=== PATIENT | female | born 1990 | race Caucasian/White ===

== ENCOUNTER 2017-05-02 16:11 | Observation (INO) | payer BC ==
[~2017-05-02] VITALS: Ht 167.6 cm; Wt 83.7 kg
[2017-05-03 16:55] LABS: BILIRUBIN URINE NEGATIVE (NEGATIVE); BLOOD URINE NEGATIVE /UL (NEGATIVE); COLOR URINE YELLOW (YELLOW); GLUCOSE URINE NEGATIVE (NEGATIVE); KETONE URINE NEGATIVE (NEGATIVE); LEUKOCYTES URINE NEGATIVE /UL (NEGATIVE); NITRITE URINE NEGATIVE (NEGATIVE); PH URINE 6.5 (4.0-8.0); PROTEIN URINE NEGATIVE (NEGATIVE); TURBIDITY URINE CLEAR (CLEAR); UROBILINOGEN URINE NORMAL (NORMAL)
[2017-05-03] MEDS ORDERED: PRENATAL 1+1)(P1 TAB PO (17:01)
[2017-05-03] MEDS ORDERED: LEVOTHROID (SY25 MCG PO (17:01)
[2017-05-03 17:02] LABS: BASOPHIL % 0.4 %; EOSINOPHIL # 0.1 K/uL (0.0-0.5); EOSINOPHIL % 1.2 %; HEMATOCRIT 36.2 % (33.0-46.0); HEMOGLOBIN 12.3 g/dL (11.0-15.0); IMMATURE GRANULOCYTE # 0.1 K/uL (0.0-0.3); IMMATURE GRANULOCYTE % 0.7 %; LYMPHOCYTE # 1.8 K/uL (0.8-4.0); LYMPHOCYTE % 21.6 %; MCH 31.3 pg (27.0-34.0); MCV 92.1 fl (83.0-98.0); MONOCYTE # 0.5 K/uL (0.0-1.0); MONOCYTE % 6.1 %; MPV 10.2 fl (9.4-12.4); NEUTROPHIL # (ANC) 5.7 K/uL (1.8-7.8); NRBC % 0 /100WBC (0-0.00); PLATELET COUNT 214 K/uL (150-450); RBC 3.93 M/uL (3.50-5.00); RDW-CV 13.5 % (11.9-14.6); WBC 8.2 K/uL (4.0-11.0)
== END 2017-05-03 18:53 | disposition disaster alternative care site (69) ==
LOC: EDSTATUS 16:11 → GOBM 16:53 → GOBS 05-03 16:33
PROVIDERS: ADMIT Obstetrics & Gynecology
DX: O99.89 Other specified diseases and conditions complicating pregnancy, childbirth and the puerperium (principal); R51 Headache; Z3A.40 40 weeks gestation of pregnancy
CPT/HCPCS: G0463

== ENCOUNTER 2017-05-05 05:25 | Inpatient (IN) | payer BC ==
[~2017-05-05] VITALS: Ht 167.6 cm; Wt 84.0 kg
--- NOTE | ~2017-05-05 | OR ---
PATIENT'S NAME: GABE ARAUZ [facility] AGE: 26 Y [address] ROOM: [place] [address] LOCATION: GOBS ADMIT DATE: 05/05/2017 OR/Procedure Report DISCHARGE DATE: FAMILY PHYSICIAN: Ankush Rodriguez MD ATTENDING PHYSICIAN: Cadence Stacy SURGEON: Kay Henderson MD DRAFTER MARINE: None. DATE OF PROCEDURE: 05/05/2017 PROCEDURES PERFORMED: Low vacuum-assisted vaginal delivery and manual extraction of the placenta. PRE-DELIVERY DIAGNOSES: 1. Intrauterine at 40 weeks 3 days. 2. Active labor. 3. Arrest of descent. POST-DELIVERY DIAGNOSES: 1. Intrauterine at 40 weeks 3 days. 2. Active labor. 3. Arrest of descent. 4. Post- hemorrhage. 5. Retained placenta. ANTIBIOTICS: None indicated. ANESTHESIA: With epidural. FINDINGS: A viable male weighing 8 pounds, 13 ounces. Apgars were 8 and 9. Umbilical cord was from placenta, which was manually extracted in pieces. Normal-appearing cervix and vagina. Second-degree perineal laceration. SPECIMENS: Cord blood. ESTIMATED BLOOD LOSS: 800 mL. COMPLICATIONS: The patient had increased bleeding due to retained placenta, and received IV Pitocin per protocol as well as one dose of IM Methergine, with subsequent improvement in her bleeding. INDICATIONS FOR PROCEDURE: The patient is a 26-year-old G3, P0-0-2-0, who presented at 40 weeks 3 days with complaints of contractions. The patient was 3 cm to 4 cm dilated on presentation, and then changed to 6. She received an epidural, and progressed normally through labor. When the patient was PATIENT'S NAME: GABE ARAUZ [facility] AGE: 26 Y [address] ROOM: [place] [address] LOCATION: BS ADMIT DATE: 05/05/2017 OR/Procedure Report DISCHARGE DATE: FAMILY PHYSICIAN: Ankush Rodriguez MD ATTENDING PHYSICIAN: Cadence Stacy complete, she began expulsive efforts and pushed for approximately 2-1/2 hours with a slight amount of descent to +2 station from a previous of +1. A discussion was held with the patient and her significant other that due to the minimal descent over the last hour of pushing, I would recommend proceeding either with an operative vaginal delivery versus a primary section. She is aware of the risks of operative delivery to include, but not limited to risk of bruising and bleeding of the scalp, risks of shoulder dystocia, risk of increased tearing, and possible risk of failed delivery with the need for subsequent section. They were aware of the risks and desired to proceed with an operative delivery. DESCRIPTION OF OPERATION: The patient was in dorsal lithotomy position in [facility], and was prepped and draped in the usual sterile fashion. The fetus was felt to be in the LOP presentation. Pelvis was felt to be adequate, and the patient had a Sampson catheter in place that had recently just been removed prior to draping. Estimated weight was approximately 3700 g. vacuum was tested and felt to have appropriate suction. Vacuum was then applied to head at this point in maximal flexion. Pressure was applied. Over the course of approximately three contractions, downward pressure was exerted, while the patient pushed. No pop-offs occurred. descent occurred appropriately, and vacuum was disengaged after head had crowned. head was allowed to restitute. With the assistance of maternal expulsive efforts and gentle downward and upward pressure, the shoulders were easily delivered, followed by the remainder of the body. Infant initially appeared to have a poor tone. Cord was clamped and cut, and the infant was handed off to the awaiting NICU team. Cord blood was obtained. then had an immediate vigorous cry upon resuscitation. IV Pitocin was started per protocol. Gentle downward traction was placed on the cord. Placenta did not immediately deliver. Attention was turned to inspection for lacerations. The patient was noted to have a second-degree perineal laceration, which was repaired per routine with 2-0 Vicryl. Gentle downward traction was then again placed on the umbilical cord, and eventually, the umbilical cord from the placenta. Manual extraction of the placenta was then performed, and placenta was removed in pieces. Manual exploration was performed, and no further pieces were felt within the uterus. Attention was turned back to the incision to make sure it was hemostatic. Her repair did appear hemostatic; however, increased free flow was noted. Again, a manual exploration of the uterus was performed with a small piece of placenta felt to be adherent to the cervical os, which was removed. The patient was given a dose of IM Methergine at this time as well. With PATIENT'S NAME: GABE ARAUZ [facility] AGE: 26 Y [address] ROOM: [address] [address] LOCATION: [facility] ADMIT DATE: 05/05/2017 OR/Procedure Report DISCHARGE DATE: FAMILY PHYSICIAN: Ankush Rodriguez MD ATTENDING PHYSICIAN: Cadence Stacy continued fundal massage, the patient had minimal free flow, and she was monitored for approximately another 10 minutes with minimal change in her bleeding, and was felt to be stable at that point in time. COUNT RESULTS: All needle, sponge, and instrument counts were noted to be correct x2. MD FADUMO GRAF/roxy /[id number] d: 05/05/[id number] t: 05/06/171942, OPERATIVE SUMMARY
[~2017-05-05 05:25] MED LIST: LEVOTHROID (SY25 MCG PO; PRENATAL 1+1)(P1 TAB PO
[2017-05-05] MEDS ORDERED: DIFLUCAN150 MG PO (06:03)
[2017-05-05] MEDS ORDERED: FEOSOL325 MG PO (06:12)
[2017-05-05 07:02] LABS: BASOPHIL % 0.4 %; EOSINOPHIL # 0.1 K/uL (0.0-0.5); EOSINOPHIL % 0.7 %; HEMATOCRIT 34.7 % (33.0-46.0); HEMOGLOBIN 11.5 g/dL (11.0-15.0); IMMATURE GRANULOCYTE # 0.1 K/uL (0.0-0.3); IMMATURE GRANULOCYTE % 0.9 %; LYMPHOCYTE # 1.8 K/uL (0.8-4.0); LYMPHOCYTE % 18.6 %; MCH 30.5 pg (27.0-34.0); MCHC 33.1 gm/dL (32.0-36.5); MONOCYTE # 0.7 K/uL (0.0-1.0); MONOCYTE % 7.3 %; MPV 9.9 fl (9.4-12.4); NEUTROPHIL % 72.1 %; NRBC % 0 /100WBC (0-0.00); PLATELET COUNT 204 K/uL (150-450); RBC 3.77 M/uL (3.50-5.00); RDW-CV 13.3 % (11.9-14.6); WBC 9.8 K/uL (4.0-11.0)
[2017-05-06 04:58] LABS: BASOPHIL % 0.2 %; EOSINOPHIL % 0.3 %; HEMOGLOBIN 8.9 g/dL (11.0-15.0); IMMATURE GRANULOCYTE # 0.1 K/uL (0.0-0.3); IMMATURE GRANULOCYTE % 0.7 %; LYMPHOCYTE # 2.3 K/uL (0.8-4.0); MCV 92.8 fl (83.0-98.0); MONOCYTE # 1.2 K/uL (0.0-1.0); MPV 10.2 fl (9.4-12.4); NEUTROPHIL # (ANC) 11.5 K/uL (1.8-7.8); NEUTROPHIL % 75.8 %; NRBC % 0 /100WBC (0-0.00); RDW-CV 13.3 % (11.9-14.6); WBC 15.2 K/uL (4.0-11.0)
[2017-05-06 05:02] LABS: HEMATOCRIT 25.8 % (33.0-46.0); MCHC 34.5 gm/dL (32.0-36.5); PLATELET COUNT 163 K/uL (150-450); RBC 2.78 M/uL (3.50-5.00)
--- NOTE | 2017-05-06 12:14 | NUR ---
Introduced self and explained long term care social worker role to mom and dad. Discussed supports they may need at home. Parents denied the need for resources at this time. Both sets of grandparents live in the area and will be helping the family. Explained the importance of contacting insurance company within 30 days to add baby to policy. Provided and reviewed handout with mom and dad. Congratulated family and thanked them for choosing [facility]. Will continue to follow and offer support.
--- NOTE | 2017-05-06 17:26 | NUR ---
Significant Event: Follow up: [facility]SS, Hbg 8.9,from 11.5, SL dc'd. Took a jaccuzzi , perineum swollen & tender. Preet removal of placenta, likes tea pads. Medicated with 1) percocet @ 1527, Motrin @ 1306. Also on Levothroxin 25mcg every am. Plan home tomorrow.
[2017-05-07] MEDS ORDERED: DERMOPLAST SPRA56 GM TOP (11:05)
[2017-05-07] MEDS ORDERED: PERCOCET 5-3251 EACH PO (11:06)
[2017-05-07] MEDS ORDERED: MOTRIN800 MG PO (11:06)
== END 2017-05-07 15:45 | disposition disaster alternative care site (69) | DRG 774 ==
LOC: GOBS 05:25 → GOBM 05:25 → GOBS 05:26 → GOBM 05:27 → GOBS 07:52
PROVIDERS: Obstetrics & Gynecology; ADMIT Obstetrics & Gynecology
PROC: 10D07Z6 Extraction of Products of Conception, Vacuum, Via Natural or Artificial Opening (ICD-10-PCS; principal; 2017-05-05)
PROC: 0KQM0ZZ Repair Perineum Muscle, Open Approach (ICD-10-PCS; principal; 2017-05-05)
PROC: 10907ZC Drainage of Amniotic Fluid, Therapeutic from Products of Conception, Via Natural or Artificial Opening (ICD-10-PCS; principal; 2017-05-05)
DX: O48.0 Post-term pregnancy (principal); O72.0 Third-stage hemorrhage; O99.284 Endocrine, nutritional and metabolic diseases complicating childbirth; E06.3 Autoimmune thyroiditis; O75.89 Other specified complications of labor and delivery; O70.1 Second degree perineal laceration during delivery; Z3A.40 40 weeks gestation of pregnancy; Z37.0 Single live birth
CPT/HCPCS: J2001; J2210; J2405; J2590; J3010; J7120